=== PATIENT | female | born 1980 | race Caucasian/White ===

== ENCOUNTER 2019-03-28 22:36 | Emergency (ER) | payer SELFPAY ==
[~2019-03-28] VITALS: Ht 188 cm; Wt 112.5 kg
[2019-03-28 22:48] VITALS: BP 119/74
[2019-03-28] MEDS ORDERED: PREDNISONE20 MG ORAL (23:34)
[2019-03-28] MEDS ORDERED: IBUPROFEN600 MG ORAL (23:34)
--- NOTE | 2019-03-28 23:35 | Emergency Room Report ---
History of Present Illness General Chief Complaint: General Complaint Source: Patient Present Illness HPI Is a 39-year-old female who is right-hand dominant patient she presents with chief complaint of left arm numbness. Onset for last 2 days. Worse with movement of the neck. Denies any fever chills but denies any trauma. No slurred speech. Denies any other complaint. Allergies: Coded Allergies: No Known Allergies (Unverified , 03/28/19) Patient History Past Medical History: see triage record, old chart reviewed Past Surgical History: none Pertinent Family History: none Social History: Reports: smoking Last Menstrual Period: 03/21/19 Now: No Immunizations: other Reviewed Nursing Documentation: PMH: Agreed; PSxH: Agreed Nursing Documentation-PMH Past Medical History: No Stated History Review of Systems Eye: Denies: eye pain, blurred vision ENT: Denies: ear pain, nose congestion, throat swelling Respiratory: Denies: cough, shortness of breath Cardiovascular: Denies: chest pain, palpitations Gastrointestinal: Denies: abdominal pain, diarrhea, nausea, vomiting Musculoskeletal: Denies: back pain, joint pain Skin: Denies: rash Neurological: Reports: numbness; Denies: headache Endocrine: Denies: increased thirst, increased urine Hematologic/Lymphatic: Denies: easy bruising All Other Systems: negative except mentioned in HPI Physical Exam Vital Signs Date Time Temp Pulse Resp B/P (MAP) Pulse Ox O2 Delivery O2 Flow Rate FiO2 03/28/19 22:48 98.2 89 18 119/74 96 Room Air vitals normal Sp02 EP Interpretation: reviewed, normal General Appearance: well appearing, no apparent distress, alert Head: normocephalic, atraumatic Eyes: bilateral eye PERRL, bilateral eye EOMI ENT: hearing grossly normal, normal pharynx Neck: full range of motion, supple, no meningismus Respiratory: chest non-tender, lungs clear, normal breath sounds Cardiovascular #1: regular rate, rhythm, no murmur Gastrointestinal: normal bowel sounds, non tender, no mass, no organomegaly, no bruit, non-distended Musculoskeletal: back normal, gait/station normal, normal range of motion Psychiatric: mood/affect normal Skin: warm/dry Medical Decision Making Diagnostic Impression: Primary Impression: Neuropathy, cervical (radicular) ER Course Patient with a cervical neuropathy/radiculopathy. No red flags indicate cauda equina syndrome, spinal epidural abscess or neoplastic process. Last Vital Signs Date Time Temp Pulse Resp B/P (MAP) Pulse Ox O2 Delivery O2 Flow Rate FiO2 03/28/19 22:48 89 18 Room Air 03/28/19 22:48 98.2 119/74 (89) 96 Status: unchanged Disposition: HOME, SELF-CARE Condition: Stable Scripts Ibuprofen* (MOTRIN*) 600 Mg Tablet 600 MG ORAL THREE TIMES A DAY, #30 TAB 0 Refills Prov: Ramiro Howell MD 03/28/19 Prednisone* (PREDNISONE*) 20 Mg Tablet 40 MG ORAL DAILY, #10 TAB Prov: Ramiro Howell MD 03/28/19 Additional Instructions: Follow-up with your Dr. in 7 days. You may need an MRI. Return if worse. Ramiro Howell MD Mar 28, 2019 23:35
[2019-03-28 23:41] VITALS: BP 119/74
== END 2019-03-28 23:41 | disposition home or self-care (01) ==
LOC: EMR 23:05
DX: G62.9 Polyneuropathy, unspecified (principal); F17.200 Nicotine dependence, unspecified, uncomplicated
CPT/HCPCS: 99282